=== PATIENT | male | born 1965 | race African-American/Black ===

== ENCOUNTER 2023-08-21 14:58 | Outpatient (CLI) | payer OTHER, SELFPAY ==
[2023-08-21 19:29] LABS: Anion Gap 7 mmol/L (8-16); Blood Urea Nitrogen 19 mg/dL (9-20); Calcium 8.8 mg/dL (8.4-10.2); Carbon Dioxide 26 mmol/L (22-30); Chloride 105 mmol/L (98-107); Estimated Glomerular Filt Rate > 60; Glucose 87 mg/dL (65-110); Potassium 4.1 mmol/L (3.4-5.0); Sodium 138 mmol/L (137-145)
== END 2023-08-21 14:59 | disposition home or self-care (01) ==
LOC: ANHGOSHLAB 15:00
PROVIDERS: Visit Provider Anesthesiology
DX: Z79.899 Other long term (current) drug therapy (principal); Z01.818 Encounter for other preprocedural examination
CPT/HCPCS: 36415; 80048

== ENCOUNTER 2023-08-24 10:06 | Outpatient (CLI) | payer OTHER, SELFPAY ==
--- NOTE | ~2023-08-24 | CT_ITS ---
EXAMINATION: CT sinus wo con DATE: 08/24/2023 10:43 INDICATION: Chronic nasal obstruction TECHNIQUE: Computed tomography (CT) of the paranasal sinuses was performed without contrast. Iterativ e reconstruction technique was employed. Exam dose: 312.93 mGy-cm total exam DLP. COMPARISON: None FINDINGS: There is rightward deviation of the nasal septum. There is symmetric prominent soft tissue swelling of the nasal turbinates. Intralamellar cell of both middle nasal turbinates. The ostiomeatal units are patent bilaterally. Old blowout fractures of the medial wall of each orbit. The frontal, ethmoid and maxillary sinuses are unremarkable. Slight mucoperiosteal thickening of the sphenoid sinuses. The mastoid air cells are normally developed and aerated. The middle and inner ear apparatus appear normal bilaterally. IMPRESSION: Old blowout fractures of medial rivera of the orbits Rightward deviation of nasal septum Symmetric prominent soft tissue swelling of the nasal turbinates Intralamellar cell of both middle nasal turbinates Patent paranasal sinuses, osteomeatal units and mastoid air cells Reviewed, dictated and finalized at [facility]. Reviewed, dictated and finalized at [facility].
== END 2023-08-24 10:07 | disposition home or self-care (01) ==
PROVIDERS: Visit Provider Otolaryngology
DX: J01.21 Acute recurrent ethmoidal sinusitis (principal); J01.01 Acute recurrent maxillary sinusitis; J34.2 Deviated nasal septum; J34.3 Hypertrophy of nasal turbinates
CPT/HCPCS: 70486

== ENCOUNTER 2023-08-28 00:59 | Day surgery (SDC) | payer OTHER, SELFPAY ==
[2023-08-16 11:50] VITALS: BMI 38.4
--- NOTE | 2023-08-16 11:58 | PC.NURSE ---
Report to the Outpatient Waiting Room, entrance under the green pavilion located off [facility], at time _0630_ on date _[id number]_. Planned Procedure Time: _0830_. Time changes happen often and if your time is changed the preop area will call you the afternoon before. - You and your visitor will be asked to self-screen and do not enter if you have any COVID symptoms. - A mask is optional within the hospital at this time. Patients may have clear liquids (water, carbonated beverages, clear teas, apple juice) until 3 hours prior to surgery with a maximum of 20 ounces. - No food from midnight until time of surgery Take the following medications with a SIP of water the morning of surgery: ___None DO NOT STOP ANY OF YOUR OTHER PRESCRIPTION MEDICATIONS PRIOR TO SURGERY ?EXCEPT THE FOLLOWING Medications to discontinue per physician ____None Date to take last dose Please no make-up, nail niuean, hairspray, perfume, deodorant, or body powder the day of surgery. No jewelry (including any body piercings) or valuables the day of surgery, leave them at home. Please take a shower or bath the night before, or the morning of, surgery with an antibacterial soap. Wear comfortable, loose fitting clothing. - Jewelry must be removed prior to entering the operating room. Rings and piercings that are not removed may be cut off. - The hospital will not accept responsibility for valuables. - Please leave all valuables, including medications, at home the day of surgery. If you are going home after surgery, a licensed transport driver must drive you home. - NO public transportation without another adult if you receive anesthesia. - We recommend that an adult stay with you for 24 hours following discharge. - We also recommend that you do not drive, make important decision, drink alcoholic beverages, or take any drugs that were not prescribed by your health care provider for at least 24 hours after your discharge time. Follow any additional instructions given to you from your surgeon. If you or anyone in your household have experienced Covid symptoms in the past week, please notify your surgeon or the nurse liaison at the phone number below for possible testing. Telephone instructions given to _Patient__and asked if any additional questions and then verbalized understanding. Patient advised to call surgeon office or pre surgery nurse liaison [phone] if any additional questions.
--- NOTE | 2023-08-27 17:09 | PM.IMHP ---
H&P: HPI History of Present Illness Date/Time: 08/27/23 17:09 Chief Complaint: nasal obstruction nasal congestion septal deviation turbinate hypertrophy Narrative: planned surgical procedure Review of Systems Review of Systems: All systems reviewed & are unremarkable except as noted in HPI and below [facility] Past Medical History Medical History Arthritis Osteoporosis Family History Family History Mother Cerebrovascular accident Social History Social History Years smoked: 8 Smoking status: Former smoker Smoking end date: 08/16/10 Alcohol intake: never Substance use: current Substance use type: marijuana Other substance usage details: every now and then. Lack of Transportation: No Lack of Food: Sometimes True Current Housing: I Have Housing Concerned About Future Housing: No Difficulty Paying Gas/Electric Bills: YES Difficulty Paying for Meds: No Currently Unemployed: No Education: High School Diploma/GED Difficulty w/ Childcare or Family Care: No Living arrangements: with family Spiritual care concerns: No Meds Home Medications and Allergies Home Medications Medication Instructions Recorded Confirmed Type famotidine 20 mg tablet 20 mg PO QAM 08/16/23 08/16/23 History losartan 100 1 tablet PO DAILY 08/16/23 08/16/23 History mg-hydrochlorothiazide 25 mg tablet Allergies Allergy/AdvReac Type Severity Reaction Status Date / Time naproxen AdvReac Intermediate Nausea and Verified 08/16/23 11:49 Vomiting Exam Narrative: large turbinates septal deviation Assessment and Plan Assessment and plan (1) Nasal congestion: Code(s): R09.81 - Nasal congestion Status: Acute Assessment and Plan: plan OR turbinate reduction 1st turbinoplasty possible septoplasty. Risks were discussed including CSF leak brain brain damage change in vision total blindness need for further procedures septal perforation turbinate hypertrophy postoperative bleeding postoperative infection need for time off work time off school need for stent splints if we perform septoplasty. Damage to any structure of the clavicle by myself damage to any structure during the induction and maintenance of anesthesia Including vocal cord paralysis. Need for follow-up. Failure to resolve symptoms. (2) Nasal obstruction: Code(s): J34.89 - Other specified disorders of nose and nasal sinuses Status: Acute (3) Hypertrophy of both inferior nasal turbinates: Code(s): J34.3 - Hypertrophy of nasal turbinates Status: Acute (4) Nasal septal deviation: Code(s): J34.2 - Deviated nasal septum Status: Acute
[2023-08-28] VITALS (9 sets, daily range): BP systolic 109–123; BP diastolic 62–83; PULSE 58–74; RESP 10–20; TEMP 36.1–36.6; O2SAT 99–100; BMI 37.8
--- NOTE | 2023-08-28 07:21 | WPDHPUPDATE1 ---
History and Physical Update Update Date/Time: 08/28/23 07:21 History and Physical has been reviewed, including an updated exam of the patient. There are NO changes in the patient's condition. Risks, benefits, and alternatives have been discussed and questions answered. Patient agrees to proceed with procedure.
--- NOTE | 2023-08-28 07:41 | ECG_ITS ---
Measurements Intervals [place] Rate: 67 P: 66 DC: 244 QRS: 24 QRSD: 94 T: 22 QT: 396 QTc: 420 Interpretive Statements SINUS RHYTHM WITH FIRST DEGREE AV BLOCK WITH OCCASIONAL VENTRICULAR PREMATURE COMPLEXES NO PREVIOUS ECG AVAILABLE FOR COMPARISON Electronically Signed On 08-28-2023 16:20:56 CDT by Sanchez Jauregui M.D.
[2023-08-28] MEDS: ACETAMINOPHEN 500 MG TABLET 1000 MG PO (08:07)
--- NOTE | 2023-08-28 08:09 | WPDANESEPPF ---
Anes - Initial Pre Proc Eval Procedure: Operation Date: 08/28/23 08:30 Proposed Procedures p Bilateral Inferior Turbinectomy with Outfracture - Hever Perez MD s Endoscopic Septoplasty - Hever Perez MD Date/Time: 08/28/23 08:09 Surgeon: Hever Perez MD Pre Op Diagnosis: Septal Deviation, Hypertrophy Turbinates Patient Data Age: 58 Gender: M Height: 1.8 m Weight: 125 kg Allergies Allergy/AdvReac Type Severity Reaction Status Date / Time naproxen AdvReac Intermediate Nausea and Verified 08/28/23 07:51 Vomiting Home Medications Medication Instructions Recorded Confirmed Type famotidine 20 mg tablet 20 mg PO QAM 08/16/23 08/28/23 History losartan 100 1 tablet PO DAILY 08/16/23 08/28/23 History mg-hydrochlorothiazide 25 mg tablet Patient hx anesthesia problems: none Family hx anesthesia problems: none Results Review: All pre-operative results and documents have been reviewed as part of the pre-operative evaluation. [facility] Past Medical History Medical History (Updated 08/28/23 @ 08:09 by Fidel Murray MD) Arthritis HTN (hypertension) Obesity Osteoporosis Surgical History Surgical History (Updated 08/28/23 @ 08:10 by Fidel Murray MD) History of surgery on lower extremity left lower - compartment syndrome after trauma Family History Family History Mother Cerebrovascular accident Social History Social History Years smoked: 8 Smoking status: Former smoker Smoking end date: 08/16/10 Alcohol intake: never Substance use: current Substance use type: marijuana Other substance usage details: every now and then. Lack of Transportation: No Lack of Food: Sometimes True Current Housing: I Have Housing Concerned About Future Housing: No Difficulty Paying Gas/Electric Bills: YES Difficulty Paying for Meds: No Currently Unemployed: No Education: High School Diploma/GED Difficulty w/ Childcare or Family Care: No Living arrangements: with family Spiritual care concerns: No Anes - Eval Final PreProcedure Day of Procedure 08/28/23 08:09 Patient weight: obese Heart: regular rate and rhythm Lungs: clear to auscultation Airway: Mallampati scale class II Neurological: alert and oriented Last oral intake: >/= 8 hours ASA classification: III Emergent: no Anesthetic plan: proceed Anesthesia type and monitoring: general ETT and standard monitoring Results Review: All pre-operative results and documents have been reviewed as part of the pre-operative evaluation. Informed Consent: The patient's anesthetic plan and its attendant risks and benefits were discussed with the patient/family/POA. Questions were solicited and answers provided to the satisfaction of the patient/family/POA.
[2023-08-28] MEDS: LACTATED RINGERS 1,000 ML 30 ML IV CONT (08:26)
--- NOTE | 2023-08-28 08:58 | WPDHPUPDATE1 ---
History and Physical Update Update Date/Time: 08/28/23 08:58 Procedure will be possible septoplasty, turbinate reduction with outfracture
--- NOTE | 2023-08-28 09:15 | SUR.PREOP ---
0915- Clarified consent and plan of care with Dr. Perez. Patient agreeable to plan, H&P and update documented, consent signed and on chart.
[2023-08-28] MEDS: ceFAZolin 3 GM/D5W 100 ML 100 ML IVPB (09:21)
[2023-08-28] MEDS: LIDO 1%/EPINEPHRINE 1:100,000 20 ML VIAL 5 ML INFILTRATE (09:50)
[2023-08-28] MEDS: OXYMETAZOLINE HCL 0.05% NAS 15 ML BTL (*BKC) 1 SPRAY NASAL (09:53)
--- NOTE | 2023-08-28 10:29 | W.PM.PROC2 ---
Procedure Note - Detailed Date of Procedure 08/28/23 Pre-op Diagnosis Septal Deviation, Hypertrophy Turbinates Post-op Diagnosis Same Procedure Performed Bilateral inferior turbinate reduction with outfracture Surgeon Hever Perez MD Anesthesia General Indications See above Findings Right septal deviation patient did not want septoplasty bilateral severe turbinate hypertrophy well reduced minimal bleeding from the entry point Description of Procedure Patient identified consent verified in the preoperative holding area. Patient brought to the operating room. Time-out performed. General anesthesia induced endotracheal tube secure taped to the left lower lip. Patient prepped draped position procedure confirmed 2nd time-out performed. Afrin-soaked pledgets placed for 5 minutes then removed. 0 degree endoscope utilized [employer] microdebrider utilized. 1 cc injected into each of the inferior turbinates. Microdebrider utilized to enter anteriorly debrided submucosally very good debridement no tearing of the mucosa. This was done bilaterally. They were then outfractured. Very good reduction much more patent airway. [place] tips were cauterized entry points were gently cauterized as well. The septum was deviated to the right the patient was adamant that he did not want a septoplasty unless it was severe. I would grade the septal deviation and mild to moderate. Blood loss about 5 cc. Bilateral nasal passage or suction no active bleeding. Afrin-soaked pledgets were placed bilaterally the patient was allowed to wake up the pledgets were removed. Patient tolerated the procedure very well. No complications. Care the patient was given back to Anesthesiology was taken to PACU. Estimated Blood Loss 5 Drains No Packing No Pathology None sent Complications No immediate complications Condition Stable Disposition PACU [facility] Billing Surgery - Charge Forward: Surgery Billing
[2023-08-28] MEDS: fentaNYL CITRATE INJ (*CRX) 100 MCG/2 ML VIAL 25 MCG IV PUSH ×3 (10:32→10:40)
== END 2023-08-28 12:06 | disposition home or self-care (01) ==
PROVIDERS: Visit Provider Otolaryngology
PROC: (CPT 30140; principal; 2023-08-28 08:30)
DX: J34.3 Hypertrophy of nasal turbinates (principal); J34.2 Deviated nasal septum; J34.89 Other specified disorders of nose and nasal sinuses; R09.81 Nasal congestion; M81.0 Age-related osteoporosis without current pathological fracture; I10 Essential (primary) hypertension; E66.9 Obesity, unspecified; Z68.37 Body mass index [BMI] 37.0-37.9, adult; Z87.891 Personal history of nicotine dependence; F12.90 Cannabis use, unspecified, uncomplicated
CPT/HCPCS: 30140; 93005; A9270; J0690; J1100; J1170; J2250; J2405; J2704; J3010; J7120